=== PATIENT | male | born 1975 | race Caucasian/White ===

== ENCOUNTER 2018-01-16 15:54 | Emergency (ER) | payer BC | END 2018-01-16 16:36 | disposition home or self-care (01) | LOC: MADERS 15:54 | DX: S33.5XXA Sprain of ligaments of lumbar spine, initial encounter (principal); I10 Essential (primary) hypertension; F17.210 Nicotine dependence, cigarettes, uncomplicated; Z79.899 Other long term (current) drug therapy; X50.1XXA Overexertion from prolonged static or awkward postures, initial encounter | CPT/HCPCS: 99283 ==

== ENCOUNTER 2018-06-08 13:23 | Emergency (ER) | payer BC | END 2018-06-08 15:00 | disposition home or self-care (01) | LOC: MADERS 13:23 | DX: J11.1 Influenza due to unidentified influenza virus with other respiratory manifestations (principal); I10 Essential (primary) hypertension; F41.9 Anxiety disorder, unspecified; F17.210 Nicotine dependence, cigarettes, uncomplicated; Z79.899 Other long term (current) drug therapy | CPT/HCPCS: 87804; 99283 ==

== ENCOUNTER 2018-11-20 11:45 | Emergency (ER) | payer BC ==
[2018-11-20] MEDS ORDERED: cefTRIAXone\\ROCEPHIN 1 GM VIAL ONE (12:45)
[2018-11-20] MEDS ORDERED: Lidocaine 1% 20 ML MDV ONE (12:46)
== END 2018-11-20 13:14 | disposition home or self-care (01) ==
LOC: MADERS 11:45
DX: J44.1 Chronic obstructive pulmonary disease with (acute) exacerbation (principal); F17.210 Nicotine dependence, cigarettes, uncomplicated; I10 Essential (primary) hypertension; F41.9 Anxiety disorder, unspecified; Z71.6 Tobacco abuse counseling; Z79.899 Other long term (current) drug therapy
CPT/HCPCS: 96372; 99406; J0696; J1040; J2001

== ENCOUNTER 2019-06-24 12:09 | Emergency (ER) | payer BC | END 2019-06-24 12:57 | disposition home or self-care (01) | LOC: MADERS 12:09 | DX: J06.9 Acute upper respiratory infection, unspecified (principal); I10 Essential (primary) hypertension; F41.9 Anxiety disorder, unspecified; F17.210 Nicotine dependence, cigarettes, uncomplicated; Z79.899 Other long term (current) drug therapy | CPT/HCPCS: 99283 ==

== ENCOUNTER 2021-03-26 17:27 | Emergency (ER) | payer BC ==
[2021-03-26] MEDS ORDERED: predniSONE 20 MG TAB ONE (20:42)
[2021-03-27 19:48] LABS: SARS-CoV-2 PCR by NAA Not Detected (NotDetected)
== END 2021-03-26 20:54 | disposition home or self-care (01) ==
LOC: MADERS 17:27
DX: B34.9 Viral infection, unspecified (principal); Z20.822 Contact with and (suspected) exposure to COVID-19; Z87.891 Personal history of nicotine dependence
CPT/HCPCS: 99283; J7512; U0003; U0005